=== PATIENT | female | born 1990 | race Hispanic/Latino ===

== ENCOUNTER 2018-03-04 03:25 | Emergency (ER) | payer SELFPAY ==
[2018-03-04 03:44] LABS: Pregnancy Test - Urine (BHCG) Negative (Negative); Pregu Control Background? CLEAR/WHITE (CLR/WHITE); Pregu Control Bar Appear? YES (CONTROL BAR); Specific Gravity 1.017 (1.002-1.036)
[2018-03-04] MEDS ORDERED: Ketorolac Tromethamine 60 MG/2 ML VIAL ONE (03:44)
[2018-03-04 03:45] LABS: Clarity Clear (Clear); Leukocyte Negative (Negative); Nitrite Negative (Negative)
[2018-03-04 03:46] LABS: Bilirubin Negative (Negative); Blood, Urine Trace (Negative); Glucose, Urine (Dipstick) Negative (Negative); Protein, Urine (Dipstick) Negative (Neg-Trace); Urobilinogen 0.2 mg/dL (0.2-1.0)
[2018-03-04 03:53] LABS: Bacteria/HPF 1+ HPF (None Seen); RBC/HPF 0-3 HPF (0-3); Squamous Epithelial 0-3 HPF (0-3); Transitional Epithelial 0-3 HPF (0-3); WBC/HPF 0-3 HPF (0-3)
[2018-03-04 04:09] LABS: #Basophils 0.1 thou/uL (0.0-0.2); #Eosinphils 0.4 thou/uL (0.0-0.7); #Lymphocytes 3.3 thou/uL (1.20-3.40); #Monocytes 0.6 thou/uL (0.11-0.59); #Neutrophils 5.1 thou/uL (1.40-6.50); %Basophils 1.2 % (0.0-1.0); %Lymphocytes 35.2 % (21.0-51.0); %Monocytes 6.3 % (0.0-10.0); %Neutrophils 53.4 % (42.0-75.0); Hemoglobin 13.7 g/dL (12.0-16.0); Mean Corpuscular HGB CONC 33.9 g/dL (32.0-36.0); Mean Corpuscular Hemoglobin 28.5 pg (27.0-31.0); Mean Corpuscular Volume 84.1 fL (78.0-98.0); Mean Platelet Volume 8.9 fL (7.4-10.4); Platelet Count 236 thou/uL (130-400); RBC Distribution Width 12.4 % (11.5-14.5); Red Blood Cell (RBC) Count 4.81 mill/uL (4.20-5.40); White Blood Cell (WBC) Count 9.5 thou/uL (4.8-10.8)
[2018-03-04 04:23] LABS: ALT (SGPT) 13 U/L (8-55); AST (SGOT) 10 U/L (5-34); Albumin 3.9 g/dL (3.5-5.0); Alkaline Phosphatase 44 U/L (40-150); Anion Gap 12 mmol/L (10-20); BUN (Urea Nitrogen) 9 mg/dL (7.0-18.7); Bilirubin, Total 0.3 mg/dL (0.2-1.2); Calc. Creatinine Clearance 0 mL/min (70-130); Calcium 9.2 mg/dL (7.8-10.44); Carbon Dioxide 22 mmol/L (22-29); Chloride 108 mmol/L (98-107); Estimated GFR-MDRD Greater than 90; Glucose 91 mg/dL (70-105); Lipase 27 U/L (8-78); Protein, Total 6.9 g/dL (6.0-8.3); Sodium 138 mmol/L (136-145)
== END 2018-03-04 04:36 | disposition home or self-care (01) ==
LOC: BURERS 03:25
DX: R10.13 Epigastric pain (principal)
CPT/HCPCS: 36415; 80053; 81003; 81015; 81025; 83690; 85025; 96372; J1885

== ENCOUNTER 2020-01-30 13:02 | Emergency (ER) | payer SELFPAY ==
[2020-01-30 13:47] LABS: #Basophils 0.1 thou/uL (0.0-0.2); #Eosinphils 0.2 thou/uL (0.0-0.7); #Lymphocytes 1.7 thou/uL (1.20-3.40); #Monocytes 0.5 thou/uL (0.11-0.59); #Neutrophils 6.8 thou/uL (1.40-6.50); %Basophils 1.3 % (0.0-1.0); %Eosinophils 2.6 % (0.0-10.0); %Lymphocytes 18.1 % (21.0-51.0); %Monocytes 5.1 % (0.0-10.0); %Neutrophils 72.9 % (42.0-75.0); Bilirubin Negative (Negative); Blood, Urine Negative (Negative); Clarity Cloudy (Clear); Glucose, Urine (Dipstick) Negative (Negative); Hemoglobin 12.8 g/dL (12.0-16.0); Ketone, Urine Trace mg/dL (Negative); Leukocyte Negative (Negative); Mean Corpuscular HGB CONC 30.3 g/dL (32.0-36.0); Mean Corpuscular Hemoglobin 26.8 pg (27.0-31.0); Mean Corpuscular Volume 88.5 fL (78.0-98.0); Mean Platelet Volume 9.1 fL (7.4-10.4); Nitrite Negative (Negative); Platelet Count 232 thou/uL (130-400); Protein, Urine (Dipstick) Negative (Neg-Trace); RBC Distribution Width 13.3 % (11.5-14.5); Red Blood Cell (RBC) Count 4.78 mill/uL (4.20-5.40); Specific Gravity, Urine 1.025 (1.005-1.030); Urobilinogen 0.2 mg/dL (Less than 2); White Blood Cell (WBC) Count 9.3 thou/uL (4.8-10.8); pH, Urine 6.5 (5.0-9.0)
[2020-01-30 13:51] LABS: Pregnancy Test - Urine (BHCG) Negative (Negative); Pregu Control Background? CLEAR/WHITE (CLR/WHITE); Pregu Control Bar Appear? YES (CONTROL BAR); Specific Gravity 1.025 (1.002-1.036)
[2020-01-30 14:04] LABS: ALT (SGPT) 52 U/L (8-55); AST (SGOT) 51 U/L (5-34); Albumin 4.1 g/dL (3.5-5.0); Alkaline Phosphatase 57 U/L (40-110); Anion Gap 13 mmol/L (10-20); BUN (Urea Nitrogen) 8 mg/dL (7.0-18.7); Bilirubin, Total 0.3 mg/dL (0.2-1.2); Calc. Creatinine Clearance 0 mL/min (70-130); Calcium 8.9 mg/dL (7.8-10.44); Carbon Dioxide 25 mmol/L (22-29); Chloride 105 mmol/L (98-107); Estimated GFR-MDRD Greater than 90; Globulin 2.9 g/dL (2.4-3.5); Glucose 102 mg/dL (70-105); Lipase 24 U/L (8-78); Potassium 4.1 mmol/L (3.5-5.1); Sodium 139 mmol/L (136-145)
== END 2020-01-30 14:05 | disposition home or self-care (01) ==
LOC: BURERS 13:02
DX: R10.11 Right upper quadrant pain (principal)
CPT/HCPCS: 36415; 80053; 81003; 81025; 83690; 85025; 99284

== ENCOUNTER 2020-03-31 21:15 | Emergency (ER) | payer SELFPAY ==
[2020-03-31] MEDS ORDERED: Glycopyrrolate 0.4 MG/ 2 ML VIAL ONE (21:33)
[2020-03-31] MEDS ORDERED: Ondansetron PF 4 MG/2 ML Vial ONE (21:33)
[2020-03-31] MEDS ORDERED: Famotidine In NaCl 20 mg/50 ml Premix Bag ONE (21:33)
[2020-03-31 21:55] LABS: #Basophils 0.1 thou/uL (0.0-0.2); #Lymphocytes 1.2 thou/uL (1.20-3.40); #Monocytes 0.6 thou/uL (0.11-0.59); #Neutrophils 9.3 thou/uL (1.40-6.50); %Basophils 0.7 % (0.0-1.0); %Eosinophils 0.3 % (0.0-10.0); %Lymphocytes 10.7 % (21.0-51.0); %Monocytes 5.5 % (0.0-10.0); %Neutrophils 82.9 % (42.0-75.0); Hemoglobin 13.4 g/dL (12.0-16.0); Mean Corpuscular HGB CONC 31.8 g/dL (32.0-36.0); Platelet Count 233 thou/uL (130-400); RBC Distribution Width 13.2 % (11.5-14.5); Red Blood Cell (RBC) Count 4.95 mill/uL (4.20-5.40); White Blood Cell (WBC) Count 11.2 thou/uL (4.8-10.8)
[2020-03-31] MEDS ORDERED: Ketorolac Tromethamine 30 MG/ML VIAL ONE (21:59)
[2020-03-31 22:02] LABS: ALT (SGPT) 155 U/L (8-55); AST (SGOT) 173 U/L (5-34); Albumin 4.1 g/dL (3.5-5.0); Alkaline Phosphatase 71 U/L (40-110); Anion Gap 17 mmol/L (10-20); BUN (Urea Nitrogen) 8 mg/dL (7.0-18.7); Bilirubin, Total 1.6 mg/dL (0.2-1.2); Calc. Creatinine Clearance 0 mL/min (70-130); Carbon Dioxide 20 mmol/L (22-29); Chloride 104 mmol/L (98-107); Estimated GFR-MDRD Greater than 90; Globulin 2.8 g/dL (2.4-3.5); Glucose 119 mg/dL (70-105); Potassium 3.7 mmol/L (3.5-5.1); Protein, Total 6.9 g/dL (6.0-8.3); Sodium 137 mmol/L (136-145)
[2020-03-31 22:26] LABS: Lipase 5775 U/L (8-78)
[2020-03-31 22:29] LABS: BHCG - Serum Negative (NEGATIVE); Pregs Control Background? CLEAR/WHITE (CLR/WHITE); Pregs Control Bar Appear? YES (CONTROL BAR)
[2020-03-31] MEDS ORDERED: Fentanyl 100 MCG/2 ML VIAL ONE (22:40)
[2020-03-31 22:41] LABS: Bilirubin Small (Negative); Blood, Urine Negative (Negative); Clarity Clear (Clear); Glucose, Urine (Dipstick) Negative (Negative); Ketone, Urine 40 mg/dL (Negative); Leukocyte Negative (Negative); Nitrite Negative (Negative); Protein, Urine (Dipstick) Trace mg/dL (Neg-Trace); pH, Urine 7.5 (5.0-9.0)
== END 2020-03-31 23:03 | disposition short-term general hospital (02) ==
LOC: BURERS 21:15
DX: K85.90 Acute pancreatitis without necrosis or infection, unspecified (principal); K81.9 Cholecystitis, unspecified
CPT/HCPCS: 36415; 80053; 81003; 83690; 84703; 85025; 96365; 96375; J1885; J1956; J2405; J3010

== ENCOUNTER 2021-06-25 12:30 | Emergency (ER) | payer OTHER, SELFPAY ==
[2021-06-25] MEDS ORDERED: Boostrix 0.5 ML (Tdap) VIAL IM ONE (12:31)
[2021-06-25] MEDS ORDERED: Lidocaine 2% 20 ml MDV ONE (13:07)
[2021-06-25 13:37] LABS: #Basophils 0.1 thou/uL (0.0-0.2); #Eosinphils 0.2 thou/uL (0.0-0.7); #Lymphocytes 1.9 thou/uL (1.20-3.40); #Monocytes 0.6 thou/uL (0.11-0.59); #Neutrophils 6.2 thou/uL (1.40-6.50); %Basophils 0.9 % (0.0-1.0); %Eosinophils 2.5 % (0.0-10.0); %Lymphocytes 20.7 % (21.0-51.0); %Neutrophils 68.9 % (42.0-75.0); Hemoglobin 13.2 g/dL (12.0-16.0); Mean Corpuscular HGB CONC 32.3 g/dL (32.0-36.0); Mean Corpuscular Volume 83.8 fL (78.0-98.0); Mean Platelet Volume 8.2 fL (7.4-10.4); Platelet Count 271 thou/uL (130-400); RBC Distribution Width 13.3 % (11.5-14.5); Red Blood Cell (RBC) Count 4.89 mill/uL (4.20-5.40); White Blood Cell (WBC) Count 8.9 thou/uL (4.8-10.8)
[2021-06-25 13:52] LABS: ALT (SGPT) 20 U/L (8-55); AST (SGOT) 16 U/L (5-34); Albumin 4.2 g/dL (3.5-5.0); Alkaline Phosphatase 46 U/L (40-110); Anion Gap 15 mmol/L (10-20); BUN (Urea Nitrogen) 9 mg/dL (7.0-18.7); Bilirubin, Total 0.3 mg/dL (0.2-1.2); CK (CPK) 80 U/L (29-168); Calc. Creatinine Clearance 0 mL/min (70-130); Calcium 9.2 mg/dL (7.8-10.44); Carbon Dioxide 24 mmol/L (22-29); Chloride 106 mmol/L (98-107); Globulin 3.4 g/dL (2.4-3.5); Glucose 90 mg/dL (70-105); Potassium 4.5 mmol/L (3.5-5.1); Protein, Total 7.6 g/dL (6.0-8.3); Sodium 140 mmol/L (136-145)
[2021-06-25] MEDS ORDERED: Ondansetron PF 4 MG/2 ML Vial ONE (14:36)
[2021-06-25] MEDS ORDERED: levETIRAcetam 500 MG/5 ML VIAL ONE (15:00)
[2021-06-25 15:01] LABS: Bilirubin Negative (Negative); Blood, Urine Large (Negative); Clarity Slightly Cloudy (Clear); Glucose, Urine (Dipstick) Negative (Negative); Ketone, Urine Trace mg/dL (Negative); Leukocyte Negative (Negative); Nitrite Negative (Negative); Protein, Urine (Dipstick) 100 mg/dL (Neg-Trace); Urobilinogen 0.2 mg/dL (Less than 2)
[2021-06-25 15:04] LABS: pH, Urine Greater/Equal 9.0 (5.0-9.0)
[2021-06-25 15:09] LABS: Bacteria/HPF None Seen HPF (None Seen); RBC/HPF Greater than 50 HPF (0-3); Squamous Epithelial 0-3 HPF (0-3); WBC/HPF 0-3 HPF (0-3)
== END 2021-06-25 15:33 | disposition home or self-care (01) ==
LOC: BURERS 12:30
DX: R56.9 Unspecified convulsions (principal); S01.81XA Laceration without foreign body of other part of head, initial encounter; W01.10XA Fall on same level from slipping, tripping and stumbling with subsequent striking against unspecified object, initial encounter
CPT/HCPCS: 12013; 36415; 70450; 70486; 71045; 80053; 81003; 81015; 82550; 83605; 85025; 90471; 90715; 93005; 96365; 96375; J1953; J2405

== ENCOUNTER 2021-10-08 23:47 | Emergency (ER) | payer SELFPAY ==
[2021-10-09] MEDS ORDERED: Lidocaine Viscous Sol 2% 15 ml UD Cup ONE (00:09)
[2021-10-09] MEDS ORDERED: Mag-Al Plus 1200 MG/1200 MG/120 MG/30 ML UDCUP ONE (00:09)
[2021-10-09 00:36] LABS: #Basophils 0.1 thou/uL (0.0-0.2); #Eosinphils 0.2 thou/uL (0.0-0.7); #Lymphocytes 1.9 thou/uL (1.20-3.40); #Monocytes 0.6 thou/uL (0.11-0.59); %Lymphocytes 22.1 % (21.0-51.0); %Monocytes 6.6 % (0.0-10.0); %Neutrophils 68.2 % (42.0-75.0); Hemoglobin 12.4 g/dL (12.0-16.0); Mean Corpuscular Hemoglobin 28.4 pg (27.0-31.0); Mean Corpuscular Volume 83.7 fL (78.0-98.0); Mean Platelet Volume 9.7 fL (7.4-10.4); Platelet Count 196 thou/uL (130-400); RBC Distribution Width 14.2 % (11.5-14.5); Red Blood Cell (RBC) Count 4.35 mill/uL (4.20-5.40); White Blood Cell (WBC) Count 8.8 thou/uL (4.8-10.8)
[2021-10-09 00:50] LABS: ALT (SGPT) 54 U/L (8-55); AST (SGOT) 82 U/L (5-34); Albumin 3.6 g/dL (3.5-5.0); Alkaline Phosphatase 67 U/L (40-110); Anion Gap 16 mmol/L (10-20); BUN (Urea Nitrogen) 8 mg/dL (7.0-18.7); Bilirubin, Total 0.7 mg/dL (0.2-1.2); Calc. Creatinine Clearance 0 mL/min (70-130); Calcium 8.8 mg/dL (7.8-10.44); Carbon Dioxide 23 mmol/L (22-29); Chloride 105 mmol/L (98-107); Globulin 3.3 g/dL (2.4-3.5); Glucose 105 mg/dL (70-105); Potassium 4.4 mmol/L (3.5-5.1); Protein, Total 6.9 g/dL (6.0-8.3); Sodium 140 mmol/L (136-145)
[2021-10-09 02:44] LABS: Lipase 3450 U/L (8-78)
== END 2021-10-09 02:00 | disposition home or self-care (01) ==
LOC: BURERS 23:47
DX: K29.00 Acute gastritis without bleeding (principal); G40.909 Epilepsy, unspecified, not intractable, without status epilepticus; Z79.899 Other long term (current) drug therapy
CPT/HCPCS: 36415; 80053; 83690; 85025; 99284

== ENCOUNTER 2022-07-22 10:35 | Emergency (ER) | payer SELFPAY | END 2022-07-22 11:16 | disposition home or self-care (01) | LOC: BURERS 10:35 | DX: R23.8 Other skin changes (principal) | CPT/HCPCS: 99282 ==

== ENCOUNTER 2024-02-15 | Emergency (ER) | payer OTHER | END 2024-02-15 00:55 | disposition home or self-care (01) | LOC: BURERS | DX: J04.0 Acute laryngitis (principal); G40.909 Epilepsy, unspecified, not intractable, without status epilepticus; Z79.899 Other long term (current) drug therapy | CPT/HCPCS: 99282 ==